=== PATIENT | male | born 1975 | race Asian ===

== ENCOUNTER 2017-05-03 12:52 | Emergency (ER) | payer BC ==
[2017-05-03 13:06] VITALS: BP 123/80; PULSE 67; RESP 14; TEMP 98.6; O2SAT 94
--- NOTE | 2017-05-03 13:38 | EDPHY ---
H & P Time Seen by Provider: 05/03/17 13:04 HPI/ROS: CHIEF COMPLAINT: Back pain History by patient HISTORY OF PRESENT ILLNESS: 42-year-old man with no significant past medical history presents complaining of 5 days of left lower back pain which has been getting progressively worse. He localizes it to just over his sacrum lateral to his lumbar spine. He denies any specific trauma however the before it started he did ski and he also helped a friend move. He did not feel any specific trauma to the back at the time. Pain is worse when he moves around or walks. He took a dose of ibuprofen with some relief and he has also tried a dose of Tylenol with minimal relief. He denies any fever or chills. There is no history of immunosuppression. He did have a similar episode about 3 years ago and had an MRI at that time which showed no significant pathology. He said there was some"disc thinning". Patient has some chronic numbness and tingling to his left lateral calf which he does not feel has been any worse or exacerbated by his current back pain. There is no shooting pain down his leg. He has had no difficulty controlling his bowel or bladder. He does state that he has some chronic dysuria when he"gets dehydrated" but has not had any recent dysuria. Denies any perianal numbness. He does not use injection drugs or have diabetes or other immunosuppression. He works as a computer network and systems engineer. REVIEW OF SYSTEMS: As in [facility], and all other systems reviewed and are negative Smoking Status: Never smoked Physical Exam: General Appearance: Alert, well-appearing. Head: Normocephalic, atraumatic Eyes: Pupils equal and round, no pallor or injection. ENT, Mouth: Mucous membranes moist. Neck: No bony tenderness, full range of motion Gastrointestinal: Abdomen is soft and nontender, no masses, bowel sounds normal. Neurological: Awake, alert and oriented x 3, no pronator drift, normal gait, no pronator drift, DTRs 2+ and equal bilaterally in knees and ankles, no pain with straight leg raise, walk on heels and toes Back: No bony tenderness, positive tenderness and palpable muscle spasm and left lateral paraspinous muscles in lower lumbar region, no CVA tenderness Skin: Warm and dry, no rashes. Musculoskeletal: Neck is supple, FROM, nontender. Extremities: symmetrical, full range of motion. Psychiatric: Patient has normal affect, there is no agitation. Constitutional: Initial Vital Signs Temperature (C) 37 C 05/03/17 12:59 Heart Rate 67 05/03/17 12:59 Respiratory Rate 14 05/03/17 12:59 Blood Pressure 123/80 H 05/03/17 12:59 O2 Sat (%) 94 05/03/17 12:59 O2 Delivery Mode Room Air Allergies/Adverse Reactions: No Known Allergies Allergy (Verified 05/03/17 12:57) Home Medications: Medication Instructions Recorded Cyclobenzaprine [Flexeril 10 MG 10 mg PO TID PRN #10 tab 05/03/17 (*)] MDM/Departure - MDM ED Course/Re-evaluation: 42-year-old man presents complaining of left lower back pain with palpable muscle spasm and tenderness and normal neurologic exam. I discussed the patient had there is no indications for imaging at this time. We discussed conservative measures for symptomatic treatment including ibuprofen, ice, massage and Flexeril as needed and red flags for need for imaging or immediate re-evaluation including but not limited to focal numbness or weakness, loss of bowel or bladder control or fever. I recommended close follow-up with his primary care physician. - Depart Disposition: Home, Routine, Self-Care Clinical Impression: Acute right-sided low back pain Qualifiers: Sciatica presence: without sciatica Qualified Code(s): M54.5 - Low back pain Condition: Good Instructions: Acute Low Back Pain (ED) Additional Instructions: You were seen by Dr. Mana Booth today. We have found no serious cause of your back pain today. I recommend treating the symptoms with ibuprofen 600 mg 4 times a day while awake for the next 5 days. You may also use acetaminophen (Tylenol) 1000 mg every 4 hr while awake. You may use Flexeril, muscle relaxant, at night to help with pain while sleeping. When the pain has calmed down in a few days I recommend trying massage. Please follow-up with your primary care physician if your symptoms persist. Return for any worsening or new concerns, including but not limited to inability to control your bowels or bladder, leg weakness, fever or uncontrolled pain. Prescriptions: Cyclobenzaprine [Flexeril 10 MG (*)] 10 mg PO TID PRN #10 tab PRN Reason: pain Referrals: JEFERSON ALLEN [Primary Care Provider] - As per Instructions
== END 2017-05-03 13:47 | disposition home or self-care (01) ==
LOC: CED 12:52
DX: M54.5 Low back pain (principal)